=== PATIENT | female | born 1955 | race Caucasian/White ===

== ENCOUNTER 2019-06-13 08:53 | Outpatient (CLI) | payer BC ==
[2019-06-13] MEDS ORDERED: FLEC150T PO (09:31)
[2019-06-13] MEDS ORDERED: DILT240C77 PO (09:31)
[2019-06-13] MEDS ORDERED: APIX5TAB PO (09:31)
[2019-06-13] MEDS ORDERED: LISI1TAB20 PO (09:31)
== END 2019-06-13 23:59 | disposition home or self-care (01) ==
LOC: STAR 08:53
PROVIDERS: ATTEND Internal Medicine Cardiovascular Disease
DX: Z01.818 Encounter for other preprocedural examination (principal); Z11.59 Encounter for screening for other viral diseases
CPT/HCPCS: C9803; U0001

== ENCOUNTER → 2019-06-15 | Outpatient (CLI) | payer BC ==
[~2019-06-15] MED LIST: APIX5TAB PO; CLON0.1T22 PO; DILT240C61 PO; DILT240C77 PO; FLEC150T PO; LISI1TAB20 PO; OMNIPAQUE 350 MG/ML, 150 ML BOTTLE ONE
== END | disposition home or self-care (01) ==
LOC: CFH 13:34
PROVIDERS: ATTEND Internal Medicine Cardiovascular Disease
DX: I25.10 Atherosclerotic heart disease of native coronary artery without angina pectoris (principal); J98.11 Atelectasis; I48.91 Unspecified atrial fibrillation
CPT/HCPCS: 75572; Q9967

== ENCOUNTER 2019-06-16 05:58 | Inpatient (IN) | payer BC ==
[2019-06-13 09:26] VITALS: BP 150/92
[2019-06-13 09:47] LABS: BASOPHILS # (AUTO) 0.03 x10^3/uL (0-0.1); BASOPHILS % (AUTO) 0 % (0-1); EOSINOPHILS # (AUTO) 0.21 x10^3/uL (0-0.4); EOSINOPHILS % (AUTO) 3 % (1-7); LYMPHOCYTES # (AUTO) 1.66 x10^3/uL (1-3.4); LYMPHOCYTES % (AUTO) 23 % (22-44); MD NO; MEAN CORPUSCULAR HEMOGLOBIN 31.2 pg (27.0-34.8); MEAN CORPUSCULAR HGB CONC 33.4 g/dL (32.4-35.8); MEAN CORPUSCULAR VOLUME 93.3 fL (80-100); MEAN PLATELET VOLUME 7.9 fL (7.4-10.4); MONOCYTES # (AUTO) 0.45 x10^3/uL (0.2-0.8); MONOCYTES % (AUTO) 6 % (2-9); NEUTROPHILS # (AUTO) 5.03 x10^3/uL (1.8-6.8); NEUTROPHILS % (AUTO) 68 % (42-75); PLATELET COUNT 332 x10^3/uL (130-400)
[2019-06-13 10:00] LABS: ANION GAP 5 mmol/L (5-15); CALCIUM 8.8 mg/dL (8.5-10.1); CHLORIDE 97 mmol/L (98-107)
[~2019-06-16] VITALS: Ht 165.1 cm; Wt 125.0 kg
[~2019-06-16 05:58] MED LIST changes: -CLON0.1T22 PO; -DILT240C61 PO; -OMNIPAQUE 350 MG/ML, 150 ML BOTTLE ONE
[2019-06-16] MEDS ORDERED: SODIUM CHLORIDE 0.9% 1,000 ML IV SCH (06:19)
[2019-06-16] MEDS ORDERED: SODIUM CHLORIDE 0.9% 1,000 ML IV ONE (06:30)
[2019-06-16] MEDS ORDERED: CLON0.1T22 PO (07:07)
[2019-06-16] MEDS ORDERED: DILT240C61 PO (07:07)
[2019-06-16 07:23] LABS: ANION GAP 9 mmol/L (5-15); CALCIUM 9.2 mg/dL (8.5-10.1); CHLORIDE 100 mmol/L (98-107)
[2019-06-16] MEDS ORDERED: PROPOFOL 50 ML ONE (07:42)
[2019-06-16] MEDS ORDERED: FENTANYL PF 250 MCG/5ML ONE (07:43)
[2019-06-16] MEDS ORDERED: MIDAZOLAM 1 MG/ML, 2ML ONE (07:43)
[2019-06-16] MEDS ORDERED: LIDOCAINE 2%, 20ML ONE (07:58)
[2019-06-16] MEDS ORDERED: ROCURONIUM 10 MG/ML,10ML ONE (08:09)
[2019-06-16] MEDS ORDERED: SUCCINYLCHOLINE 20 MG/ML, 10ML ONE (08:09)
[2019-06-16] MEDS ORDERED: DEXAMETHASONE 4 MG/ML, 1ML ONE (08:09)
[2019-06-16] MEDS ORDERED: HEPARIN 1,000 UNITS/ML, 10ML ONE (08:09)
[2019-06-16] MEDS ORDERED: PROMETHAZINE 25 MG/ML, 1ML IV PRN (09:30)
[2019-06-16] MEDS ORDERED: METOPROLOL 1 MG/ML, 5ML IV PRN (09:30)
[2019-06-16] MEDS ORDERED: DIAZEPAM 5 MG/ML, 2ML IVPush PRN (09:30)
[2019-06-16] MEDS ORDERED: ONDANSETRON 2MG/ML, 2ML IV PRN (09:30)
[2019-06-16] MEDS ORDERED: hydrALAzine 20 MG/ML, 1ML IV PRN (09:30)
[2019-06-16] MEDS ORDERED: EPHEDRINE 50 MG/ML, 1ML IVPush PRN (09:30)
[2019-06-16] MEDS ORDERED: FENTANYL PF 100 MCG/2ML IV PRN (09:30)
[2019-06-16] MEDS ORDERED: EPHEDRINE 50 MG/ML, 1ML IM PRN (09:30)
[2019-06-16] MEDS ORDERED: HYDROmorphone 2 MG/ML, 1ML IVPush PRN (09:30)
[2019-06-16] MEDS ORDERED: MEPERIDINE/PF 25MG/ML,1ML IVPush PRN (09:30)
[2019-06-16] MEDS ORDERED: OXYcodone 5 MG/5 ML ORAL.SOL UDC PO PRN (09:30)
[2019-06-16] MEDS ORDERED: ONDANSETRON ODT 8 MG PO PRN (09:30)
[2019-06-16] MEDS ORDERED: MIDAZOLAM 1 MG/ML, 2ML IV PRN (09:30)
[2019-06-16] MEDS ORDERED: DIPHENHYDRAMINE 50 MG/ML, 1ML IVPush PRN (09:30)
[2019-06-16] MEDS ORDERED: APIXABAN 5 MG TABLET PO ONE (12:00)
[2019-06-16] MEDS ORDERED: LISINOPRIL 20 MG TABLET PO SCH (12:00)
[2019-06-16] MEDS ORDERED: ACETAMINOPHEN 325 MG TABLET PO PRN (12:00)
[2019-06-16] MEDS: APIXABAN 5 MG TABLET PO SCH ×2 (12:55→21:14)
[2019-06-16] MEDS ORDERED: APIXABAN 5 MG TABLET ONE (12:55)
[2019-06-16] MEDS ORDERED: HYDROCHLOROTHIAZIDE 25 MG TABLET PO SCH (13:26)
[2019-06-16 14:00] VITALS: BP 140/84
[2019-06-16] MEDS ORDERED: POTASSIUM CHLORIDE 20 MEQ TAB.ER.PRT PO ONE (14:30)
[2019-06-16] MEDS: COLCHICINE 0.6 MG CAPSULE PO SCH ×2 (15:01→21:14)
[2019-06-16] MEDS: DOFETILIDE 125 MCG CAPSULE PO SCH (17:54)
[2019-06-16 21:18] VITALS: BP 138/88
[2019-06-17 02:00] VITALS: BP 130/70
[2019-06-17] MEDS: DOFETILIDE 125 MCG CAPSULE PO SCH ×2 (06:00→18:01)
[2019-06-17 08:07] VITALS: BP 152/99
[2019-06-17] MEDS: LISINOPRIL 20 MG TABLET PO SCH (09:08)
[2019-06-17] MEDS: COLCHICINE 0.6 MG CAPSULE PO SCH ×2 (09:08→21:07)
[2019-06-17] MEDS: DILTIAZEM 240 MG CAP.ER.24H PO SCH (09:09)
[2019-06-17] MEDS: APIXABAN 5 MG TABLET PO SCH ×2 (09:09→21:07)
[2019-06-17] MEDS ORDERED: POTASSIUM CHLORIDE 20 MEQ TAB.ER.PRT PO ONE ×2 (10:24→10:30)
[2019-06-17] MEDS ORDERED: FUROSEMIDE 20 MG/2 ML IV ONE ×2 (10:30→17:00)
[2019-06-17 13:01] VITALS: BP 143/88
[2019-06-17] MEDS ORDERED: POTASSIUM CHLORIDE 20 MEQ TAB.ER.PRT ONE (17:58)
[2019-06-17 18:43] VITALS: BP 137/85
[2019-06-18 01:02] VITALS: BP 121/76
[2019-06-18 05:23] LABS: BASOPHILS # (AUTO) 0.06 x10^3/uL (0-0.1); BASOPHILS % (AUTO) 0 % (0-1); EOSINOPHILS # (AUTO) 0.12 x10^3/uL (0-0.4); EOSINOPHILS % (AUTO) 1 % (1-7); LYMPHOCYTES # (AUTO) 1.64 x10^3/uL (1-3.4); LYMPHOCYTES % (AUTO) 12 % (22-44); MD NO; MEAN CORPUSCULAR HEMOGLOBIN 31.9 pg (27.0-34.8); MEAN CORPUSCULAR HGB CONC 33.7 g/dL (32.4-35.8); MEAN CORPUSCULAR VOLUME 94.6 fL (80-100); MEAN PLATELET VOLUME 8.6 fL (7.4-10.4); MONOCYTES # (AUTO) 0.78 x10^3/uL (0.2-0.8); MONOCYTES % (AUTO) 6 % (2-9); NEUTROPHILS # (AUTO) 10.69 x10^3/uL (1.8-6.8); NEUTROPHILS % (AUTO) 80 % (42-75); PLATELET COUNT 296 x10^3/uL (130-400); RED CELL DISTRIBUTION WIDTH 14.1 % (9.6-15.2)
[2019-06-18 05:28] LABS: CHLORIDE 96 mmol/L (98-107)
[2019-06-18 05:38] LABS: ANION GAP 7 mmol/L (5-15); CALCIUM 8.6 mg/dL (8.5-10.1); CREATININE 0.88 mg/dL (0.55-1.02)
[2019-06-18] MEDS: DOFETILIDE 125 MCG CAPSULE PO SCH ×2 (06:00→18:03)
[2019-06-18 06:45] VITALS: BP 141/84
[2019-06-18] MEDS: LISINOPRIL 20 MG TABLET PO SCH (09:15)
[2019-06-18] MEDS: DILTIAZEM 240 MG CAP.ER.24H PO SCH (09:15)
[2019-06-18] MEDS: COLCHICINE 0.6 MG CAPSULE PO SCH ×2 (09:15→20:35)
[2019-06-18] MEDS: APIXABAN 5 MG TABLET PO SCH ×2 (09:15→20:35)
[2019-06-18 13:31] VITALS: BP 130/84
[2019-06-18] MEDS ORDERED: FUROSEMIDE 20 MG/2 ML IV ONE (19:00)
[2019-06-18 19:17] VITALS: BP 144/88
[2019-06-19 01:18] VITALS: BP 142/78
[2019-06-19 05:06] LABS: ANION GAP 7 mmol/L (5-15); CALCIUM 8.5 mg/dL (8.5-10.1); CHLORIDE 95 mmol/L (98-107); CREATININE 0.76 mg/dL (0.55-1.02)
[2019-06-19 05:08] LABS: BASOPHILS # (AUTO) 0.06 x10^3/uL (0-0.1); BASOPHILS % (AUTO) 1 % (0-1); EOSINOPHILS # (AUTO) 0.18 x10^3/uL (0-0.4); EOSINOPHILS % (AUTO) 2 % (1-7); LYMPHOCYTES # (AUTO) 1.16 x10^3/uL (1-3.4); LYMPHOCYTES % (AUTO) 10 % (22-44); MD NO; MEAN CORPUSCULAR HGB CONC 33.9 g/dL (32.4-35.8); MEAN CORPUSCULAR VOLUME 94.2 fL (80-100); MEAN PLATELET VOLUME 8.8 fL (7.4-10.4); MONOCYTES # (AUTO) 0.73 x10^3/uL (0.2-0.8); MONOCYTES % (AUTO) 6 % (2-9); NEUTROPHILS # (AUTO) 9.31 x10^3/uL (1.8-6.8); NEUTROPHILS % (AUTO) 81 % (42-75); PLATELET COUNT 284 x10^3/uL (130-400); RED BLOOD COUNT 3.53 x10^6/uL (3.82-5.3); RED CELL DISTRIBUTION WIDTH 14.1 % (9.6-15.2)
[2019-06-19] MEDS: DOFETILIDE 125 MCG CAPSULE PO SCH (06:00)
[2019-06-19 07:25] VITALS: BP 133/85
[2019-06-19] MEDS ORDERED: COLC0.6C3 PO (08:28)
[2019-06-19] MEDS ORDERED: DOFE125C PO ×2 (08:28)
[2019-06-19] MEDS ORDERED: LISI-170 PO (08:28)
[2019-06-19] MEDS ORDERED: DOFE250C PO (08:32)
[2019-06-19] MEDS: COLCHICINE 0.6 MG CAPSULE PO SCH (08:36)
[2019-06-19] MEDS: APIXABAN 5 MG TABLET PO SCH (08:36)
[2019-06-19] MEDS: LISINOPRIL 20 MG TABLET PO SCH (08:36)
[2019-06-19] MEDS: DILTIAZEM 240 MG CAP.ER.24H PO SCH (08:36)
== END 2019-06-19 10:51 | disposition home or self-care (01) | DRG 273 ==
LOC: CACL 05:58 → ORIP 11:51 → 5SO 13:03
PROVIDERS: ADMIT Internal Medicine Cardiovascular Disease; ATTEND Internal Medicine Cardiovascular Disease
PROC: 02K83ZZ Map Conduction Mechanism, Percutaneous Approach (ICD-10-PCS; 2019-06-16)
PROC: 4A023FZ Measurement of Cardiac Rhythm, Percutaneous Approach (ICD-10-PCS; 2019-06-16)
PROC: 4A0234Z Measurement of Cardiac Electrical Activity, Percutaneous Approach (ICD-10-PCS; 2019-06-16)
PROC: 02583ZZ Destruction of Conduction Mechanism, Percutaneous Approach (ICD-10-PCS; principal; 2019-06-16 08:00)
DX: I48.0 Paroxysmal atrial fibrillation (principal); I50.31 Acute diastolic (congestive) heart failure; D68.69 Other thrombophilia; Z68.42 Body mass index [BMI] 45.0-49.9, adult; E87.1 Hypo-osmolality and hyponatremia; D64.9 Anemia, unspecified; D72.829 Elevated white blood cell count, unspecified; E66.9 Obesity, unspecified; E87.6 Hypokalemia; G47.33 Obstructive sleep apnea (adult) (pediatric); I11.0 Hypertensive heart disease with heart failure; Z87.891 Personal history of nicotine dependence; Z99.81 Dependence on supplemental oxygen
CPT/HCPCS: 36415; 93613; 93656; 93657; 93662; J3490; 71046; 80048; 83735; 83880; 85025; 85347; 93005; 93306; 93312; 93321; 93325; C1732; C1766; C1893; C1894; G0378; J1100; J1644; J2250; J2704; J3010; C1730; C1759; J0330; J1940

== ENCOUNTER 2020-04-23 10:49 | Inpatient (IN) | payer BC ==
[~2020-04-23] VITALS: Ht 165.1 cm; Wt 129.1 kg
[~2020-04-23 10:49] MED LIST changes: +CLON0.1T22 PO; +COLC0.6C3 PO; +DILT240C61 PO; +DOFE125C PO; +DOFE250C PO; +DRON400T PO; +FLUT1BLS INH; +FURO-93 PO; +LISI-170 PO; +SPIR25TA PO
[2020-04-23] MEDS ORDERED: LIDOCAINE 2%, 20ML ONE (10:59)
[2020-04-23] MEDS ORDERED: SODIUM CHLORIDE 0.9% 1,000 ML IV ONE (11:00)
[2020-04-23] MEDS ORDERED: SODIUM CHLORIDE 0.9% 1,000 ML IV SCH (11:00)
[2020-04-23 11:11] VITALS: BP 152/98
[2020-04-23] MEDS ORDERED: FURO-93 PO (11:15)
[2020-04-23] MEDS ORDERED: PLEASE ENTER HEIGHT AND WEIGHT MC SCH (11:30)
[2020-04-23 11:44] LABS: BASOPHILS % (AUTO) 1 % (0-1); EOSINOPHILS % (AUTO) 2 % (1-7); LYMPHOCYTES % (AUTO) 20 % (22-44); MEAN CORPUSCULAR HEMOGLOBIN 30.9 pg (27.0-34.8); MEAN CORPUSCULAR HGB CONC 34.2 g/dL (32.4-35.8); MEAN PLATELET VOLUME 8.3 fL (7.4-10.4); MONOCYTES % (AUTO) 6 % (2-9); NEUTROPHILS % (AUTO) 72 % (42-75); PLATELET COUNT 385 x10^3/uL (130-400); RED BLOOD COUNT 4.52 x10^6/uL (3.82-5.3); RED CELL DISTRIBUTION WIDTH 14.6 % (9.6-15.2)
[2020-04-23 11:47] LABS: MD NO
[2020-04-23 11:56] LABS: ANION GAP 9 mmol/L (5-15); CALCIUM 9.1 mg/dL (8.5-10.1); CHLORIDE 107 mmol/L (98-107); CREATININE 1.06 mg/dL (0.55-1.02); INTERNATIONAL NORMALIZED RATIO 1.02 (0.93-1.1); PROTHROMBIN TIME 10.9 Seconds (9.6-11.5)
[2020-04-23] MEDS ORDERED: PROPOFOL 50 ML ONE (12:18)
[2020-04-23] MEDS ORDERED: FENTANYL PF 250 MCG/5ML ONE ×2 (12:18→16:46)
[2020-04-23] MEDS ORDERED: MIDAZOLAM 1 MG/ML, 2ML ONE (12:18)
[2020-04-23] MEDS ORDERED: DIAZEPAM 5 MG/ML, 2ML IVPush PRN (13:00)
[2020-04-23] MEDS ORDERED: EPHEDRINE 50 MG/ML, 1ML IVPush PRN (13:00)
[2020-04-23] MEDS ORDERED: morphine SULFATE 10 MG/ML, 1ML IVPush PRN (13:00)
[2020-04-23] MEDS ORDERED: ONDANSETRON 2MG/ML, 2ML IVPush PRN (13:00)
[2020-04-23] MEDS ORDERED: PROMETHAZINE 25 MG/ML, 1ML IVPush PRN (13:00)
[2020-04-23] MEDS ORDERED: MEPERIDINE/PF 25MG/0.5ML IVPush PRN (13:00)
[2020-04-23] MEDS ORDERED: OXYcodone 5 MG/5 ML ORAL.SOL UDC PO PRN (13:00)
[2020-04-23] MEDS ORDERED: LABETALOL 5MG/ML, 20ML IV PRN (13:00)
[2020-04-23] MEDS ORDERED: FENTANYL PF 100 MCG/2ML IV PRN (13:00)
[2020-04-23] MEDS ORDERED: EPHEDRINE 50 MG/ML, 1ML IM PRN (13:00)
[2020-04-23] MEDS ORDERED: ACETAMINOPHEN 325 MG TABLET PO PRN (13:00)
[2020-04-23] MEDS ORDERED: DIPHENHYDRAMINE 50 MG/ML, 1ML IVPush PRN (13:00)
[2020-04-23] MEDS ORDERED: HEPARIN 1,000 UNITS/ML, 10ML ONE ×2 (14:24)
[2020-04-23] MEDS ORDERED: PANTOPRAZOLE 20MG TABLET PO ONE (18:30)
[2020-04-23] MEDS: APIXABAN 5 MG TABLET PO SCH ×2 (19:10→22:17)
[2020-04-23] MEDS ORDERED: APIXABAN 5 MG TABLET ONE (19:20)
[2020-04-23 21:09] VITALS: BP 156/83
[2020-04-23] MEDS: COLCHICINE 0.6 MG CAPSULE PO SCH (22:17)
[2020-04-24] VITALS (7 sets, daily range): BP systolic 132–162; BP diastolic 81–101
[2020-04-24] MEDS ORDERED: DILTIAZEM 5 MG/ML, 5ML IVPush ONE (06:30)
[2020-04-24] MEDS ORDERED: FILTER 0.22 MICRON IV PRN (08:00)
[2020-04-24] MEDS ORDERED: AMIODARONE 150 MG in DEXTROSE 5% 100 ML IV ONE (08:00)
[2020-04-24] MEDS: AMIODARONE 450 MG in DEXTROSE 5% 241 ML IV PRN ×2 (08:19→16:41)
[2020-04-24] MEDS: COLCHICINE 0.6 MG CAPSULE PO SCH ×2 (08:22→20:03)
[2020-04-24] MEDS: FUROSEMIDE 20 MG TABLET PO SCH (08:22)
[2020-04-24] MEDS: APIXABAN 5 MG TABLET PO SCH ×2 (08:22→20:04)
[2020-04-25 06:53] VITALS: BP 154/90
[2020-04-25] MEDS ORDERED: PANT20TA2 PO (07:53)
[2020-04-25] MEDS ORDERED: LOSA25TA25 PO (07:53)
[2020-04-25] MEDS ORDERED: AMIO200T42 PO (07:53)
[2020-04-25] MEDS ORDERED: COLC0.6C3 PO (07:53)
[2020-04-25] MEDS: COLCHICINE 0.6 MG CAPSULE PO SCH (09:10)
[2020-04-25] MEDS: FUROSEMIDE 20 MG TABLET PO SCH (09:10)
[2020-04-25] MEDS: APIXABAN 5 MG TABLET PO SCH (09:10)
== END 2020-04-25 10:43 | disposition home or self-care (01) | DRG 274 ==
LOC: CACL 10:49 → 5SO 20:27 → DCLOUNGE 04-25 10:25
PROVIDERS: ADMIT Internal Medicine Clinical Cardiac Electrophysiology; ATTEND Internal Medicine Clinical Cardiac Electrophysiology
PROC: 02K83ZZ Map Conduction Mechanism, Percutaneous Approach (ICD-10-PCS; 2020-04-23)
PROC: 02573ZZ Destruction of Left Atrium, Percutaneous Approach (ICD-10-PCS; principal; 2020-04-23 13:00)
DX: I48.4 Atypical atrial flutter (principal); I50.30 Unspecified diastolic (congestive) heart failure; D68.69 Other thrombophilia; I11.0 Hypertensive heart disease with heart failure; I47.1 Supraventricular tachycardia; I48.0 Paroxysmal atrial fibrillation; Z87.891 Personal history of nicotine dependence; Z79.899 Other long term (current) drug therapy; Z79.01 Long term (current) use of anticoagulants; Z20.822 Contact with and (suspected) exposure to COVID-19
CPT/HCPCS: 36415; 93613; 93655; 93656; 93657; 93662; J3490; 71046; 80048; 85025; 85347; 85610; 85730; 87635; 93005; 93306; 93312; 93321; 93325; C1732; C1766; C1893; C1894; G0378; J1644; J2250; J2704; J3010; J7060; C1730; C1759; C1769; J0282